=== PATIENT | female | born 1980 | race Two or more races ===

== ENCOUNTER 2022-01-12 16:50 | Inpatient (IN) | payer OTHER ==
[~2022-01-12] VITALS: Ht 172.7 cm; Wt 111.6 kg
[~2022-01-12 16:50] MED LIST: FERR325T6 MT; MAGN100T6 MT; PREN1TAB78 MT
[2022-01-12 18:45] LABS: BASOPHILS % 0.9 % (0.0-2.0); EOSINOPHILS % 0.5 % (0.0-5.0); HEMATOCRIT. 39.2 % (36.0-48.0); HEMOGLOBIN. 13.5 g/dL (12.0-16.0); LYMPHOCYTES % 34.1 % (20.0-50.0); MEAN CORPUSCULAR HEMOGLOBIN 31.2 pg (28.0-32.0); MEAN CORPUSCULAR VOLUME 90.7 fL (81.0-99.0); MEAN PLATELET VOLUME 9.4 fl (7.4-10.4); MONOCYTES % 4.7 % (2.0-8.0); NEUTROPHILS % 59.8 % (40.0-76.0); PLATELET 213 x1000/uL (130-400); RED BLOOD CELL COUNT 4.32 mill/uL (4.2-5.4)
[2022-01-12 18:47] LABS: CHLORIDE 109 mEq/L (98-107)
[2022-01-12 18:50] LABS: CLARITY URINE CLEAR (CLEAR); COLOR URINE YELLOW (YELLOW); KETONES URINE NEGATIVE (NEGATIVE); LEUKOCYTE ESTERASE URINE TRACE (NEGATIVE); NITRITE URINE NEGATIVE (NEGATIVE); OCCULT BLOOD URINE NEGATIVE (NEGATIVE); PROTEIN URINE TRACE (NEGATIVE); SPECIFIC GRAVITY URINE 1.013 (1.005-1.030); UROBILINOGEN URINE 0.2 E.U./dL (0.2-1.0)
[2022-01-12 19:08] LABS: D-DIMER 1.37 mg/L FEU (<0.50); INR 0.9; PARTIAL THROMBOPLASTIN TIME 28.8 sec (23.4-31.0); PROTHROMBIN TIME 9.8 sec (9.6-11.0)
[2022-01-12] MEDS ORDERED: METHYLERGONOVINE MALEATE 0.2 MG/ML IM PRN (21:30)
[2022-01-12] MEDS ORDERED: AMPICILLIN 2GM in NS 100ML 100 ML IV NR (21:30)
[2022-01-12] MEDS ORDERED: RHO(D) IMMUNE GLOBULIN 300 MCG/SYR IM NR (21:30)
[2022-01-12] MEDS ORDERED: NALOXONE HCL 0.4 MG/ML 1ML VIAL IM PRN (21:30)
[2022-01-12] MEDS ORDERED: BUTORPHANOL TARTRATE 2 MG/ML VIAL IV PRN (21:30)
[2022-01-12] MEDS ORDERED: CARBOPROST TROMETHAMINE 250 MCG/ML AMPUL IM PRN (21:30)
[2022-01-12] MEDS ORDERED: LIDOCAINE HCL 1% 10 MG/ML 10ML VIAL IJ SCH (21:45)
[2022-01-12] MEDS ORDERED: MISOPROSTOL 100MCG TABLET RC SCH (21:45)
[2022-01-12] MEDS ORDERED: MAGNESIUM 4 G PREMIX 100 ML IV NR (21:45)
[2022-01-12] MEDS: LACTATED RINGERS 1,000 ML IV SCH (22:15)
[2022-01-12] MEDS: MISOPROSTOL 100MCG TABLET VG PRN (22:17)
[2022-01-12] MEDS: MAGNESIUM 20 G PREMIX (L & D) 500 ML IV SCH ×2 (23:05→23:45)
[2022-01-12 23:07] LABS: *AMPHETAMINES SCREEN URINE NEGATIVE (NEGATIVE); *BARBITURATES SCREEN URINE NEGATIVE (NEGATIVE); *BENZODIAZEPINES SCREEN URINE NEGATIVE (NEGATIVE); *COCAINE SCREEN URINE NEGATIVE (NEGATIVE); CANNABINOID URINE SCREEN NEGATIVE (NEGATIVE); METHADONE URINE SCREEN NEGATIVE (NEGATIVE); OPIATES URINE SCREEN NEGATIVE (NEGATIVE); PHENCYCLIDINE URINE SCREEN NEGATIVE (NEGATIVE)
[2022-01-13] MEDS: MISOPROSTOL 100MCG TABLET VG PRN ×3 (02:11→10:22)
[2022-01-13] MEDS: AMPICILLIN 1,000 MG in SODIUM CHLORIDE 0.9% 50 ML IV SCH ×3 (04:15→15:36)
[2022-01-13] MEDS: LACTATED RINGERS 1,000 ML IV SCH (12:00)
[2022-01-13] MEDS: MAGNESIUM 20 G PREMIX (L & D) 500 ML IV SCH (14:04)
[2022-01-13] MEDS ORDERED: DEXT 5%/LACTATED RINGERS 1,000 ML IV SCH (14:30)
[2022-01-13] MEDS: DEXT 5%/LR + PITOCIN 20UNITS/L 1,000 ML IV SCH ×2 (16:32→20:13)
[2022-01-13] MEDS ORDERED: IBUPROFEN 400MG TABLET PO PRN (21:00)
[2022-01-13] MEDS ORDERED: LANOLIN OINT 7GM TUBE TOP PRN (21:00)
[2022-01-13] MEDS ORDERED: RHO(D) IMMUNE GLOBULIN 300 MCG/SYR IM PRN (21:00)
[2022-01-13] MEDS ORDERED: DEXT 5%/LR + PITOCIN 20UNITS/L 1,000 ML IV SCH (21:00)
[2022-01-13] MEDS ORDERED: DIPHENHYDRAMINE 25MG CAPSULE PO PRN (21:00)
[2022-01-13 21:45] VITALS: BP 127/84
[2022-01-13 22:15] VITALS: BP 130/88
[2022-01-13] MEDS: IBUPROFEN 800MG TABLET PO PRN (22:26)
[2022-01-13 22:45] VITALS: BP 133/85
[2022-01-14] VITALS (10 sets, daily range): BP systolic 107–128; BP diastolic 50–81
[2022-01-14 03:27] LABS: BASOPHILS % 0.4 % (0.0-2.0); EOSINOPHILS % 0.1 % (0.0-5.0); HEMATOCRIT. 30.8 % (36.0-48.0); HEMOGLOBIN. 10.2 g/dL (12.0-16.0); LYMPHOCYTES % 22.6 % (20.0-50.0); MEAN CORPUSCULAR HEMOGLOBIN 30.3 pg (28.0-32.0); MEAN CORPUSCULAR VOLUME 91.2 fL (81.0-99.0); MONOCYTES % 6.2 % (2.0-8.0); NEUTROPHILS % 70.7 % (40.0-76.0); PLATELET 194 x1000/uL (130-400); RED BLOOD CELL COUNT 3.38 mill/uL (4.2-5.4); RED CELL DISTRIBUTION WIDTH 15.5 % (11.6-14.6)
[2022-01-14] MEDS: IBUPROFEN 800MG TABLET PO PRN ×2 (04:50→20:07)
[2022-01-14] MEDS: LACTATED RINGERS 1,000 ML IV SCH (08:25)
[2022-01-14] MEDS: PRENATAL VIT/FE FUMARATE/FA TABLET PO SCH (08:25)
[2022-01-14] MEDS ORDERED: MAGNESIUM 20 G PREMIX (L & D) 500 ML IV SCH (09:00)
[2022-01-14] MEDS: MAGNESIUM 20 G PREMIX (L & D) 500 ML IV SCH (12:43)
[2022-01-14 21:56] LABS: BASOPHILS % 0.7 % (0.0-2.0); EOSINOPHILS % 0.8 % (0.0-5.0); HEMATOCRIT. 27.7 % (36.0-48.0); HEMOGLOBIN. 9.1 g/dL (12.0-16.0); LYMPHOCYTES % 42.8 % (20.0-50.0); MEAN CORPUSCULAR HEMOGLOBIN 30.7 pg (28.0-32.0); MEAN CORPUSCULAR VOLUME 93.3 fL (81.0-99.0); MEAN PLATELET VOLUME 8.5 fl (7.4-10.4); MONOCYTES % 5.8 % (2.0-8.0); NEUTROPHILS % 49.9 % (40.0-76.0); PLATELET 188 x1000/uL (130-400); RED BLOOD CELL COUNT 2.97 mill/uL (4.2-5.4)
[2022-01-15] MEDS: IBUPROFEN 800MG TABLET PO PRN ×2 (02:33→09:28)
[2022-01-15 03:30] VITALS: BP 117/66
[2022-01-15 07:30] VITALS: BP 112/62
[2022-01-15] MEDS: PRENATAL VIT/FE FUMARATE/FA TABLET PO SCH (09:28)
== END 2022-01-15 13:00 | disposition home or self-care (01) | DRG 560 ==
LOC: 8 EST LDRP 16:50 → OBSVTOIN 16:50 → 8EST 01-13 22:32
PROVIDERS: ADMIT Obstetrics & Gynecology; ATTEND Obstetrics & Gynecology
PROC: 10E0XZZ Delivery of Products of Conception, External Approach (ICD-10-PCS; principal; 2022-01-13)
PROC: 0HQ9XZZ Repair Perineum Skin, External Approach (ICD-10-PCS; 2022-01-13)
DX: O13.4 Gestational [pregnancy-induced] hypertension without significant proteinuria, complicating childbirth (principal); Z37.0 Single live birth; O14.24 HELLP syndrome, complicating childbirth; O70.0 First degree perineal laceration during delivery; Z20.822 Contact with and (suspected) exposure to COVID-19; Z3A.36 36 weeks gestation of pregnancy; O36.63X0 Maternal care for excessive fetal growth, third trimester, not applicable or unspecified; Z82.49 Family history of ischemic heart disease and other diseases of the circulatory system; Z83.3 Family history of diabetes mellitus
CPT/HCPCS: 36415; 76805; 76818; 80053; 80305; 81003; 83735; 84550; 85025; 85379; 85384; 86592; 86703; 86850; 86900; 87340; 87426; 99281; G0378; J0290; J2590; J3475; J3490; J7120; J7121